=== PATIENT | male | born 1975 | race Caucasian/White ===

== ENCOUNTER 2023-07-22 14:53 | Observation (INO) | payer OTHER, MEDICAID, SELFPAY ==
[2023-07-22] VITALS (11 sets, daily range): BP systolic 107–136; BP diastolic 83–98; PULSE 63–131; RESP 16–34; TEMP 36.4–36.9; O2SAT 96–98; BMI 19.2
--- NOTE | 2023-07-22 15:06 | DI.RAD.S_ITS ---
PROCEDURE: XR CHEST 1V INDICATIONS: Root from TECHNIQUE: One view of the chest was acquired. COMPARISON: None. FINDINGS: Surgical changes and devices: None. Lungs and pleura: On this semiupright portable chest examination, no large pneumothorax is seen. There are likely small bilateral pleural effusions. No focal infiltrates are seen. Mild generalized interstitial prominence can be seen. Mediastinum: Mediastinal contours appear normal. Heart size is prominently enlarged. Bones and chest wall: No suspicious bony lesions. Mild dextroconvex scoliotic curvature is seen. Overlying soft tissues appear unremarkable. IMPRESSION: Prominent cardiomegaly, with mild interstitial prominence, with small bilateral pleural effusions. CHF is suspected. Please consider follow-up echocardiogram. Dictated by: Harish Cee M.D. on 07/22/2023 at 15:20 Approved by: Harish Cee M.D. on 07/22/2023 at 15:22
[2023-07-22 15:37] LABS: Add Manual Diff / Slide Review NO; Basophils Absolute Auto 100 /uL (0-100); Basophils Percent Auto 1.4 % (0-2); Eosinophils Absolute Auto 0 /uL (0-450); Eosinophils Percent Auto 0.4 % (2-4); Lymphocytes Absolute Auto 2000 /uL (1100-4500); Lymphocytes Percent Auto 24.2 % (25-40); Mean Corpuscular HGB Conc 34.2 % (30-36); Mean Corpuscular Hemoglobin 34.9 PG (26-34); Monocytes Absolute Auto 800 /uL (0-900); Monocytes Percent Auto 9.5 % (3-14); Neutrophils Absolute Auto 5300 /uL (1500-7000); Neutrophils Percent Auto 64.5 % (50-75); Platelet Count 187 X10^3/uL (150-400); Red Blood Cell Count 4.02 X10^6/uL (4.5-5.9); Red Cell Distribution Width 14.2 % (11.6-14.8); White Blood Cell Count 8.2 X10^3/uL (4.5-11.0)
[2023-07-22 15:43] LABS: INR 1.8 (0.9-1.3); Prothrombin Time 20.6 SECONDS (9.4-12.5)
[2023-07-22 15:46] LABS: PTT Partial Thromboplastin Tim 29 SECONDS (25.1-36.5)
[2023-07-22 15:48] LABS: Alanine Aminotransferase 29 IU/L (<50); Albumin 4.8 g/dL (3.5-5.0); Albumin Globulin Ratio 1.4 (1.0-2.8); Alkaline Phosphatase 86 U/L (38-126); Aspartate Aminotransferase 42 IU/L (17-59); BUN Creatinine Ratio 28.8 (6-22); Bilirubin Total 4.4 mg/dL (0.2-1.3); Blood Urea Nitrogen 23 mg/dL (9-20); Calcium 10.2 mg/dL (8.4-10.2); Carbon Dioxide 21 mmol/L (22-32); Chloride 104 mmol/L (98-107); Creatine Kinase 83 U/L (55-170); Estimated Glomerular Filt Rate > 60 mL/min (>60); Globulin 3.4 g/dL (1.7-4.1); Glucose 109 mg/dL (70-100); HEMOLYSIS 15 (0-50); Lipase 103 U/L (23-300); Potassium 4.2 mmol/L (3.4-5.1); Sodium 136 mmol/L (137-145); Total Protein 8.2 g/dL (6.3-8.2)
--- NOTE | 2023-07-22 15:54 | PC.NURSE ---
Pt states SOB lasting over a year which is worse with exhertion and laying flat. Patient at rest denies SOB and denies chest pain. Pt had an echo but states no cardiac history and not on daily medication except for zyrtec. Pt started taking zyrtec because he thought it was allergies causing SOB.
[2023-07-22 15:59] LABS: Troponin I < 0.012 ng/mL (0.01-0.034)
[2023-07-22 16:13] LABS: NT-proBNP (BNP-Adult 18+) 30400 pg/mL (<125)
--- NOTE | 2023-07-22 16:26 | ED.SOB ---
HPI - SOB/Dyspnea General Chief Complaint: Shortness of Breath/Dyspnea Stated Complaint: SOB Dyspnea, Time Seen by Provider: 07/22/23 15:06 Source: patient Mode of arrival: Ambulatory History of Present Illness HPI Narrative: This is a 48 old male with history of chronic alcohol abuse quit a month and a half, chronic tobacco use quit about 4 months ago. Patient states he has had chronic shortness of breath that has been worsening with increasing dyspnea with exertion. He is noted increasing orthopnea and has been able to get sleep this week. He is had swelling in his lower extremities that is actually improved somewhat. He states no chest pain or pressure. No syncope. He is had some mild nausea but no vomiting. He states last week he had a viral illness with some diarrhea but no black or bloody stools. He states morning he had a nosebleed which is atypical. Patient states no dysuria, urgency or frequency no abdominal back or flank pain. He states currently he is taking Zyrtec as he thought it upper respiratory infection. No prior surgeries. He notes he had an echo in the and was told he had a floppy valve but has not had any other cardiac workup since then. Denies any allergies to drugs. Quit tobacco 4 or 5 months ago. States he was drinking 8+ alcoholic drinks daily 1-1/2-2 months ago. Has not had any alcohol since then. Denies any IV or recreational drugs, no THC. He splits his time between here in [place] and [place]. Patient states no primary care physician currently. Related Data Home Medications Medication Instructions Recorded Confirmed No Known Home Medications 07/23/23 07/23/23 Allergies Allergy/AdvReac Type Severity Reaction Status Date / Time No Known Drug Allergies Allergy Verified 07/22/23 16:44 Review of Systems Review of Systems ROS Unobtainable: All systems reviewed & are unremarkable except as noted in HPI and below Patient History Social History household members: other Smoking Status: Former smoker alcohol intake: former Smoking Status: Former smoker Substance Use Type: does not use Exam Narrative Exam Narrative: GENERAL: Alert and oriented x three, thin male in mild distress. HEENT: Head normocephalic, atraumatic, EOMI, no scleral icterus, pupils reactive, face symmetric, moist mucous membranes NECK: Supple, full range of motion CARDIOVASCULAR: Irregular and tachycardic rate and rhythm without murmurs, rubs or gallops. Positive for JVD. Edema bilateral lower extremities. RESPIRATORY: Breath sounds equal bilaterally, no wheezes, rales or rhonchi. Patient has mild tachypnea, no accessory muscle use. ABDOMEN: Soft, nontender. Normoactive bowel sounds all 4 quadrants. No guarding or rebound, rigidity, no mass, positive hepatomegaly. : No CVA tenderness EXTREMITIES: Normal range of motion, no clubbing. Neurovascularly intact NEUROLOGICAL: Cranial nerves II through XII grossly intact. Moving all extremities SKIN: Warm, dry, no petechiae, no rashes or lesions. Initial Vital Signs Initial Vital Signs: Vital Signs Temperature 98.4 F 07/22/23 14:58 Pulse Rate 63 07/22/23 14:58 Respiratory Rate 16 07/22/23 14:58 Blood Pressure 130/84 07/22/23 14:58 Pulse Oximetry 97 07/22/23 14:58 Oxygen Delivery Method Room Air 07/22/23 14:58 Course Orders Ordered: Acetaminophen (Acetaminophen 325 Mg Tablet) 650 mg PO Q6H PRN PRN Reason: Fever/Mild Pain (1-3) Aspirin (Aspirin Ec 81 Mg Tablet) 81 mg PO DAILY [facility] Furosemide (Furosemide 40 Mg/4 Ml Vial) 40 mg IV 1600,0800 [facility] Last Admin: 07/23/23 16:52 Dose: 40 mg Documented By: MM Losartan Potassium (Losartan 25 Mg Tablet) 12.5 mg PO DAILY [facility] Last Admin: 07/23/23 13:39 Dose: 12.5 mg Documented By: MM Metoprolol Succinate (Metoprolol Er 25 Mg Tablet) 12.5 mg PO DAILY [facility] Last Admin: 07/23/23 13:39 Dose: 12.5 mg Documented By: MM Potassium Chloride (Potassium Chloride 20 Meq Tab) 40 meq PO Q6H [facility] Stop: 07/24/23 13:46 Spironolactone (Spironolactone 25 Mg Tablet) 12.5 mg PO DAILY [facility] Last Admin: 07/23/23 13:38 Dose: 12.5 mg Documented By: MM Discontinued Medications Furosemide (Furosemide 40 Mg/4 Ml Vial) 40 mg IV NOW ONE Stop: 07/22/23 16:37 Last Admin: 07/22/23 16:44 Dose: 40 mg Documented By: SPF Furosemide (Furosemide 40 Mg/4 Ml Vial) 40 mg IV Q12HR JACOB Last Admin: 07/23/23 08:04 Dose: 40 mg Documented By: MM Vital Signs Vital signs: Vital Signs - 8 hr 07/22/23 14:58 07/22/23 15:29 07/22/23 15:30 Temperature 98.4 F Pulse Rate 63 115 H 117 H Respiratory Rate 16 24 24 Blood Pressure 130/84 Pulse Oximetry 97 97 97 Oxygen Delivery Method Room Air 07/22/23 15:31 07/22/23 15:31 07/22/23 16:00 Temperature Pulse Rate 131 H 103 H Respiratory Rate 21 Blood Pressure 124/89 Pulse Oximetry 97 96 Oxygen Delivery Method Room Air 07/22/23 16:00 07/22/23 16:30 07/22/23 16:30 Temperature Pulse Rate 117 H Respiratory Rate 26 H Blood Pressure 135/96 H 136/98 H Pulse Oximetry 97 Oxygen Delivery Method Room Air MDM - SOB/Dyspnea Lab Data 07/24/23 05:30 07/24/23 05:30 Labs: Lab Results 07/22/23 Range/Units 15:27 WBC 8.2 (4.5-11.0) X10^3/uL RBC 4.02 L (4.5-5.9) X10^6/uL Hgb 14.0 (13.5-17.5) g/dL Hct 41.0 (41-53) % MCV 102.0 H (80-100) fL MCH 34.9 H (26-34) PG MCHC 34.2 (30-36) % RDW 14.2 (11.6-14.8) % Plt Count 187 (150-400) X10^3/uL Neut % (Auto) 64.5 (50-75) % Lymph % (Auto) 24.2 L (25-40) % [place] % (Auto) 9.5 (3-14) % Eos % (Auto) 0.4 L (2-4) % Baso % (Auto) 1.4 (0-2) % Neut # (Auto) 5300 (7226-3124) /uL Lymph # (Auto) 2000 (2416-7936) /uL [place] # (Auto) 800 (0-900) /uL Eos # (Auto) 0 (0-450) /uL Baso # (Auto) 100 (0-100) /uL PT 20.6 H (9.4-12.5) SECONDS INR 1.8 H (0.9-1.3) APTT 29 (25.1-36.5) SECONDS Sodium 136 L (137-145) mmol/L Potassium 4.2 (3.4-5.1) mmol/L Chloride 104 (98-107) mmol/L Carbon Dioxide 21 L (22-32) mmol/L BUN 23 H (9-20) mg/dL Creatinine 0.80 (0.66-1.25) mg/dL Estimated GFR > 60 (>60) mL/min BUN/Creatinine Ratio 28.8 H (6-22) Glucose 109 H (70-100) mg/dL Calcium 10.2 (8.4-10.2) mg/dL Total Bilirubin 4.4 H (0.2-1.3) mg/dL AST 42 (17-59) IU/L ALT 29 (<50) IU/L Alkaline Phosphatase 86 (38-126) U/L Total Creatine Kinase 83 (55-170) U/L Troponin I < 0.012 (0.01-0.034) ng/mL NT-Pro-B Natriuret Pep 39723 H (<125) pg/mL Total Protein 8.2 (6.3-8.2) g/dL Albumin 4.8 (3.5-5.0) g/dL Globulin 3.4 (1.7-4.1) g/dL Albumin/Globulin Ratio 1.4 (1.0-2.8) Lipase 103 (23-300) U/L Imaging Data Chest x-ray: Radiologist's Impression: [address] [address] XRay Report Signed Patient: Herman Huggins MR#: [id number] : 1975 Acct:[id number] Age/Sex: 48 / M Date of Service: 07/22/23 Loc: ED Accession Number: [id number] Procedure: XR chest 1V Ordering Provider: Mary Lara D.O. PROCEDURE: XR CHEST 1V INDICATIONS: Root from TECHNIQUE: One view of the chest was acquired. COMPARISON: None. FINDINGS: Surgical changes and devices: None. Lungs and pleura: On this semiupright portable chest examination, no large pneumothorax is seen. There are likely small bilateral pleural effusions. No focal infiltrates are seen. Mild generalized interstitial prominence can be seen. Mediastinum: Mediastinal contours appear normal. Heart size is prominently enlarged. Bones and chest wall: No suspicious bony lesions. Mild dextroconvex scoliotic curvature is seen. Overlying soft tissues appear unremarkable. IMPRESSION: Prominent cardiomegaly, with mild interstitial prominence, with small bilateral pleural effusions. CHF is suspected. Please consider follow-up echocardiogram. Dictated by: Harish Cee M.D. on 07/22/2023 at 15:20 Approved by: Harish Cee M.D. on 07/22/2023 at 15:22 CT scan - chest: Radiologist's Impression: [place] [address] CT Scan Report Signed Patient: Herman Huggins MR#: [id number] : 1975 Acct:[id number] Age/Sex: 48 / M Date of Service: 07/22/23 Loc: ED Accession Number: [id number] Procedure: CT angio chest PE protocol Ordering Provider: Mary Lara D.O. PROCEDURE: CT ANGIO CHEST PE PROTOCOL INDICATIONS: cardiomegaly, heart failure, ? effusion vs pe TECHNIQUE: After the administration of intravenous contrast, 2 mm thick sections acquired from the pulmonary apices to the posterior costophrenic angles. 3-dimensional maximum intensity projection (MIP) coronal and sagittal reformats were then acquired through the thorax. For radiation dose reduction, the following was used: automated exposure control, adjustment of mA and/or kV according to patient size. COMPARISON: [facility], CR, XR CHEST 1V, 07/22/2023, 15:37. FINDINGS: Image quality: Diagnostic. Pulmonary arteries: Pulmonary arteries are normal in size, and demonstrate no intraluminal filling defects to suggest central pulmonary embolism. Note is made poor opacification of the distal pulmonary arteries within both the right lower lobe and the left lower lobe, which is felt most likely be related to artifact. Lungs and pleura: Centrilobular emphysematous changes are seen. These are more prominent at the lung apices than at the lung bases. There is a small right-sided pleural. No pneumothorax is seen. Mediastinum: The heart size is grossly enlarged, with particular enlargement the left atrium and left ventricle. A small pericardial effusion can be seen. No mediastinal or hilar adenopathy. Thoracic aorta is normal in caliber and enhancement. Esophagus is normal in caliber, without hiatal hernia. Bones and chest wall: No suspicious bony lesions. Ribs and thoracic spine appear intact throughout. Age-appropriate bony degenerative changes are seen. Accentuated thoracic kyphosis is seen. No axillary or supraclavicular adenopathy. No thyroid nodules which require sonographic follow up, per consensus guidelines. Abdomen: Reflux of contrast can be seen into the inferior vena cava and the hepatic veins. Visualized upper abdominal solid organs appear normal in the early arterial phase of enhancement. IMPRESSION: Negative for pulmonary embolism. Prominent cardiomegaly, particularly involving the left atrium and left ventricle. There is reflux of contrast seen into the inferior vena cava and hepatic veins, which is commonly observed in patients with congestive heart failure. - Please consider a follow-up echocardiogram and cardiology consultation. A small pericardial effusion is seen. There is a small right-sided pleural effusion. Dictated by: Harish Cee M.D. on 07/22/2023 at 16:27 Approved by: Harish Cee M.D. on 07/22/2023 at 16:31 ECG Data Attestation: I personally reviewed and interpreted this ECG as follows: Interpretation: Atrial rhythm irregular, atrial fibrillation with rate of 103 QRS of 130 QTC 482. LVH,. No priors for comparison. MDM Narrative Medical decision making narrative: 48-year-old male with history of chronic tobacco and alcohol abuse who reports he has been substance free for the past 1-2 months. Patient presents with increasing symptoms consistent with heart failure, he initially had a heart rate in the 60s but jumped up to the 100 range and has been bouncing around between 120s and 80s. Patient appears to be an atrial rhythm likely atrial fibrillation. CBC shows normal white count, hemoglobin platelets. He does have a macrocytosis consistent with alcohol history. INR is elevated with a bilirubin of 4.4 and suspect some longstanding cirrhosis other LFTs and lipase are negative. Renal function and electrolytes are appropriate at 4.2 potassium sodium 136 and a creatinine of 0.8 with a BUN of 23 and a glucose of 109. [place] [address]. Chest x-ray shows significant cardiomegaly, pleural effusions and interstitial prominence. Discussed with patient source could be cardiomyopathy from alcohol abuse, possible valvular issues as patient was told he had a floppy valve in the 90s on ultrasound, versus right-sided heart failure other source. Spoke with Dr. Sullivan from Cardiology, agrees with plan for diuresis, ECHO, would recommend placing patient on oral metoprolol succinate 25 mg p.o. b.i.d. and if blood pressure would tolerate an Arb or TAPAN inhibitor. Spoke with Dr. Child, hospitalist asked for CT chest PE protocol to rule out pulmonary emboli versus large pericardial effusion as this would change potential disposition for inpatient versus transfer. Asked that we hold off on beta christine but go ahead and start Lasix. CT angio is negative for pulmonary emboli, prominent cardiomegaly particularly left atrium and ventricle, reflux of contrast in the inferior vena cava and hepatic veins commonly observed in patients with congestive heart failure. Small pericardial effusion, small right-sided pleural effusion noted. Dr. Child accepts for admission, saw patient here in the department. Discharge Plan Departure Patient Disposition: Admitted as Observation Clinical Impression: Congestive heart failure (CHF), Atrial fibrillation with rapid ventricular response, Cardiomegaly Admit Date/Time: 07/22/23 17:47 Admit Provider: Hero Child
--- NOTE | 2023-07-22 16:43 | DI.CT.S_ITS ---
PROCEDURE: CT ANGIO CHEST PE PROTOCOL INDICATIONS: cardiomegaly, heart failure, ? effusion vs pe TECHNIQUE: After the administration of intravenous contrast, 2 mm thick sections acquired from the pulmonary apices to the posterior costophrenic angles. 3-dimensional maximum intensity projection (MIP) coronal and sagittal reformats were then acquired through the thorax. For radiation dose reduction, the following was used: automated exposure control, adjustment of mA and/or kV according to patient size. COMPARISON: [facility], CR, XR CHEST 1V, 07/22/2023, 15:37. FINDINGS: Image quality: Diagnostic. Pulmonary arteries: Pulmonary arteries are normal in size, and demonstrate no intraluminal filling defects to suggest central pulmonary embolism. Note is made poor opacification of the distal pulmonary arteries within both the right lower lobe and the left lower lobe, which is felt most likely be related to artifact. Lungs and pleura: Centrilobular emphysematous changes are seen. These are more prominent at the lung apices than at the lung bases. There is a small right-sided pleural. No pneumothorax is seen. Mediastinum: The heart size is grossly enlarged, with particular enlargement the left atrium and left ventricle. A small pericardial effusion can be seen. No mediastinal or hilar adenopathy. Thoracic aorta is normal in caliber and enhancement. Esophagus is normal in caliber, without hiatal hernia. Bones and chest wall: No suspicious bony lesions. Ribs and thoracic spine appear intact throughout. Age-appropriate bony degenerative changes are seen. Accentuated thoracic kyphosis is seen. No axillary or supraclavicular adenopathy. No thyroid nodules which require sonographic follow up, per consensus guidelines. Abdomen: Reflux of contrast can be seen into the inferior vena cava and the hepatic veins. Visualized upper abdominal solid organs appear normal in the early arterial phase of enhancement. IMPRESSION: Negative for pulmonary embolism. Prominent cardiomegaly, particularly involving the left atrium and left ventricle. There is reflux of contrast seen into the inferior vena cava and hepatic veins, which is commonly observed in patients with congestive heart failure. - Please consider a follow-up echocardiogram and cardiology consultation. A small pericardial effusion is seen. There is a small right-sided pleural effusion. Dictated by: Harish Cee M.D. on 07/22/2023 at 16:27 Approved by: Harish Cee M.D. on 07/22/2023 at 16:31
[2023-07-22] MEDS: FUROSEMIDE 40 MG/4 ML VIAL IV (16:44)
--- NOTE | 2023-07-22 18:17 | P.HP_ITS ---
History of Present Illness History of Present Illness Date Patient Seen: 07/22/23 Time Patient Seen: 18:00 Chief complaint: SOB Dyspnea, Narrative: Mr. Huggins is a 48M with no significant known PMH aside from a long history of alcohol use and tobacco use. He has quit a few months ago. He has no known history of heart disease, family history of heart disease, no known history of hypertension. He has noted a year of intermittent shortness of breath, intermittent palpitations. He has had no chest pain. He states that in the 90s he had an ECHO with a floppy valve. He has had difficulty lying flat when trying to sleep. He does not follow up with doctors. In the ED workup was done, vitals were notable for afebrile, heart rate 100s, blood pressure 130s/80s, sats 97% on room air. Labs reviewed by me and notable for and notable for WBC 8.2, hgb 14, plts 187. Na 136, co2 21, creatinine 0.80. Bili 4.4. Trop negative. BNP 10198. EKG showed LVH and atrial fibrillation. Chest xray showed cardiomegaly, and small bilateral pleural effusions. CTA chest showed no PE, small pleural effusions. He was ordered for IV lasix and admitted for further treatment. [facility] Social History Smoking Status: Former smoker Meds Home Medications and Allergies Home Medications Medication Instructions Recorded Confirmed Type No Known Home Medications 07/22/23 07/22/23 History Allergies Allergy/AdvReac Type Severity Reaction Status Date / Time No Known Drug Allergies Allergy Verified 07/22/23 16:44 Review of Systems Review of Systems Narrative: 14 systems reviewed and negative aside from what is noted in HPI Exam Vital Signs (past 8 hours): - 07/22/23 14:58 07/22/23 15:29 07/22/23 15:30 Temperature 98.4 F Pulse Rate 63 115 H 117 H Respiratory Rate 16 24 24 Blood Pressure 130/84 Pulse Oximetry 97 97 97 Oxygen Delivery Method Room Air 07/22/23 15:31 07/22/23 15:31 07/22/23 16:00 Temperature Pulse Rate 131 H 103 H Respiratory Rate 21 Blood Pressure 124/89 Pulse Oximetry 97 96 Oxygen Delivery Method Room Air 07/22/23 16:00 07/22/23 16:30 07/22/23 16:30 Temperature Pulse Rate 117 H Respiratory Rate 26 H Blood Pressure 135/96 H 136/98 H Pulse Oximetry 97 Oxygen Delivery Method Room Air 07/22/23 17:36 07/22/23 17:41 07/22/23 17:41 Temperature Pulse Rate 114 H 102 H Respiratory Rate 25 H 24 Blood Pressure 117/90 Pulse Oximetry 98 97 Oxygen Delivery Method Room Air 07/22/23 18:00 07/22/23 18:01 07/22/23 18:01 Temperature Pulse Rate 118 H 109 H Respiratory Rate 30 H 34 H Blood Pressure 115/83 Pulse Oximetry 97 97 Oxygen Delivery Method Room Air Oxygen Delivery Method Room Air Narrative Exam Narrative: GEN: no acute distress CV: irregular, tachycardic PULM: crackles bilaterally ABD: soft, nontender, nondistended, no organomegaly EXT: trace pitting edmea NEURO: awake, alert, oriented, no focal deficits Objective Labs 07/22/23 15:27 07/22/23 15:27 Labs: Laboratory Results - last 24 hr 07/22/23 15:27 WBC 8.2 RBC 4.02 L Hgb 14.0 Hct 41.0 MCV 102.0 H MCH 34.9 H MCHC 34.2 RDW 14.2 Plt Count 187 Neut % (Auto) 64.5 Lymph % (Auto) 24.2 L [place] % (Auto) 9.5 Eos % (Auto) 0.4 L Baso % (Auto) 1.4 Neut # (Auto) 5300 Lymph # (Auto) 2000 [place] # (Auto) 800 Eos # (Auto) 0 Baso # (Auto) 100 PT 20.6 H INR 1.8 H APTT 29 Sodium 136 L Potassium 4.2 Chloride 104 Carbon Dioxide 21 L BUN 23 H Creatinine 0.80 Estimated GFR > 60 BUN/Creatinine Ratio 28.8 H Glucose 109 H Calcium 10.2 Total Bilirubin 4.4 H AST 42 ALT 29 Alkaline Phosphatase 86 Total Creatine Kinase 83 Troponin I < 0.012 NT-Pro-B Natriuret Pep 66221 H Total Protein 8.2 Albumin 4.8 Globulin 3.4 Albumin/Globulin Ratio 1.4 Lipase 103 Assessment & Plan Assessment & Plan narrative: 1. Acute CHF exacerbation -I suspect the etiology is related to alcoholic cardiomyopathy -CTA showed no PE -ECHO ordered -lasix ordered for diuresis -suspect will have systolic dysfunction and will need beta-christine and TAPAN/ARB on discharge, but follow up ECHO 2. Atrial fibrillation, rapid ventricular rate -CHADSVASC2 calculation on admission on 1 -hold beta-christine for now given acute CHF presentation -consider anticoagulation on discharge I have discussed plan and obtained history from patient. I have discussed plan of care with ED physician and bedside nurse. I have reviewed labs, imaging. CODE: Full Proxy: brother [facility] - Meds 'Current medications' to include all prescriptions, [id number] products, herbals, cannabis/cannabidiol products, and vitamin/mineral/dietary (nutritional) supplements. I have utilized all available resources to obtain, update, or review the patient?s current medications. [If Yes, STOP here]: Yes
--- NOTE | 2023-07-22 18:26 | DI.ECHO.S_ITS ---
[facility]---------+ [facility] +---------+ : : [address] : : : : [id number] : : : : Phone: [phone]+ Echocardiogram Report + + :Name: GEENA SPENCE Study Date: 07/23/2023 Height: 69 in : :[facility] ReadingLocation: Weight: 130 lb : : Gender: Male BSA: 1.7 m2 : :: 1975 Age: 48 yrs BP: 107/84 mmHg: :Reason For Study: CONGESTIVE HEART FAILURE : :Ordering Physician: LISBETH, : :CAPRI Performed By: Janet Carter : :Referring: CAPRI BOB : + + Interpretation Summary The left ventricle is markedly dilated. Left ventricular ejection fraction is estimated to be 25%. There is moderate to severe global hypokinesis of the left ventricle. The right ventricle is mildly dilated. Right ventricular systolic function is mild to moderately reduced. Severe biatrial enlargement. Mild aortic regurgitation. There is prolapse of the posterior mitral valve leaflet(s). Severe mitral regurgitation, eccentrically directed. Mild tricuspid regurgitation. The right ventricular systolic pressure is estimated to be at least 68 mmHg based on an estimated right atrial pressure of 15 mm Hg. Severe pulmonary hypertension. Procedure: A two-dimensional transthoracic echocardiogram with color flow and Doppler was performed. The study quality was technically good. There is no prior echocardiogram noted for this patient. The patient was in sinus rhythm with heart rates between 86-108 bpm during the exam. Left Ventricle: The left ventricle is markedly dilated. There is mild concentric left ventricular hypertrophy. Left ventricular ejection fraction is estimated to be 25%. There is moderate to severe global hypokinesis of the left ventricle. Diastolic function could not be accurately assessed due to confounding valvular disease. Right Ventricle: The right ventricle is mildly dilated. Right ventricular systolic function is mild to moderately reduced. Atria: There is severe biatrial enlargement. There is no Doppler evidence for an interatrial shunt. Mitral Valve: The mitral valve leaflets appear mildly thickened, but open well. There is prolapse of the posterior mitral valve leaflet(s). There is severe mitral regurgitation. The mitral regurgitant jet is eccentrically directed. Aortic Valve: The aortic valve opens well. The aortic valve is trileaflet. There is no aortic valve stenosis. There is mild aortic regurgitation. Tricuspid Valve: The tricuspid valve leaflets are thin and pliable. There is mild tricuspid regurgitation. The right ventricular systolic pressure is estimated to be at least 68 mmHg based on an estimated right atrial pressure of 15 mm Hg. There is severe pulmonary hypertension. Pulmonic Valve: The pulmonic valve leaflets are thin and pliable; valve motion is normal. There is mild pulmonic regurgitation. Great Vessels: The aortic root is borderline dilated. The dimensions of the ascending aorta are normal. The IVC is dilated (diameter is greater than 2.1 cm) and it collapses less than 50% with a sniff. This suggests a high right atrial pressure of 15 mm Hg. Pericardium/ Pleura There is a trivial pericardial effusion noted. There is no pleural effusion. MMode/2D Measurements & Calculations LVIDd: 8.7 cm LVOT diam: 2.9 cm LVIDs: 7.7 cm Ao root diam: 4.4 cm FS: 12.3 % asc Aorta Diam: 3.2 cm EPSS: 1.4 cm Ao Arch Diam (Prox Trans): 2.9 cm IVSd: 1.2 cm LVPWd: 1.1 cm LV driver. diameter/BSA (cm/m^2): 5.1 LV sys. diameter/BSA (cm/m^2): 4.5 LA dimension: 8.0 cm RA long axis: 5.5 cm LA A2 area: 82.1 cm2 RA area: 23.3 cm2 LA A4 area: 56.9 cm2 RA vol: 84.1 ml LA length (vol): 9.2 cm RA : 48.9 ml/m2 LA vol: 433.2 ml IVC diam: 2.6 cm LA vol index: 251.9 ml/m2 RVD1 (basal): 4.9 cm RVD2 (mid): 3.4 cm TAPSE: 1.3 cm Doppler Measurements & Calculations Ao V2 max: 95.9 cm/sec LVOT Max Hector: 78.8 cm/sec Ao V2 mean: 70.5 cm/sec LV V1 max P.5 mmHg Ao max P.7 mmHg LV V1 VTI: 10.7 cm Ao mean P.1 mmHg DOMINIC(I,D): 5.3 cm2 Ao V2 VTI: 13.1 cm DOMINIC(V,D): 5.3 cm2 sev ratio: 0.82 DOMINIC indexed to BSA (cm^2/m^2): 3.1 AI P1/2t: 2304 msec AI dec slope: 47.7 cm/sec2 Med Peak E' Hector: 7.6 cm/sec TR max hector: 365.1 cm/sec Lat Peak E' Hector: 14.4 cm/sec TR max P.3 mmHg MR ERO: 2.0 cm2 PA V2 max: 184.1 cm/sec PA V2 mean: 137.0 cm/sec PA mean P.3 mmHg PA pr(Accel): 57.2 mmHg MR PISA: 21.2 cm2 SV(LVOT): 68.7 ml MR flow rate: 966.8 cm3/sec MR PISA radius: 1.8 cm Electronically signed by: Raul De Leon on Reading Physician:07/23/2023 09:05 AM
[2023-07-23] MEDS: FUROSEMIDE 40 MG/4 ML VIAL IV ×2 (08:04→16:52)
[2023-07-23 08:29] LABS: BUN Creatinine Ratio 27.5 (6-22); Blood Urea Nitrogen 25 mg/dL (9-20); Calcium 9.6 mg/dL (8.4-10.2); Carbon Dioxide 26 mmol/L (22-32); Chloride 101 mmol/L (98-107); Estimated Glomerular Filt Rate > 60 mL/min (>60); Glucose 100 mg/dL (70-100); HEMOLYSIS < 15 (0-50); Magnesium 1.9 mg/dL (1.6-2.3); Potassium 4.3 mmol/L (3.4-5.1); Sodium 135 mmol/L (137-145)
[2023-07-23 08:45] VITALS: BP 117/75; PULSE 74; RESP 18; TEMP 36.3; O2SAT 96
[2023-07-23 08:58] LABS: Add Manual Diff / Slide Review NO; Basophils Absolute Auto 100 /uL (0-100); Basophils Percent Auto 1.6 % (0-2); Eosinophils Absolute Auto 0 /uL (0-450); Eosinophils Percent Auto 0.7 % (2-4); Hematocrit 40.2 % (41-53); Hemoglobin 13.5 g/dL (13.5-17.5); Lymphocytes Absolute Auto 1400 /uL (1100-4500); Lymphocytes Percent Auto 21.9 % (25-40); Mean Corpuscular HGB Conc 33.7 % (30-36); Mean Corpuscular Hemoglobin 33.9 PG (26-34); Mean Corpuscular Volume 100.6 fL (80-100); Monocytes Absolute Auto 400 /uL (0-900); Monocytes Percent Auto 5.7 % (3-14); Neutrophils Absolute Auto 4700 /uL (1500-7000); Neutrophils Percent Auto 70.1 % (50-75); Platelet Count 171 X10^3/uL (150-400); Red Blood Cell Count 3.99 X10^6/uL (4.5-5.9); Red Cell Distribution Width 13.9 % (11.6-14.8); White Blood Cell Count 6.6 X10^3/uL (4.5-11.0)
[2023-07-23 13:15] VITALS: BP 100/70; PULSE 59; RESP 18; TEMP 36.2; O2SAT 98
[2023-07-23] MEDS: SPIRONOLACTONE 25 MG TABLET 12.5 MG PO (13:38)
[2023-07-23 13:39] VITALS: BP 100/70; PULSE 59
[2023-07-23] MEDS: LOSARTAN 25 MG TABLET 12.5 MG PO (13:39)
[2023-07-23] MEDS: METOPROLOL ER 25 MG TABLET 12.5 MG PO (13:39)
--- NOTE | 2023-07-23 15:04 | CM.DANOTE ---
Initial DCP Assessment Note Pt is a 48 yo male, resident of [place], presents with SOB, Dyspnea while visiting family for the . PMH includes long history of alcohol and Tobacco use. No PCP or medical insurance. patient admitted for management of severe heart failure Met w/patient and his mom Keena, introduced self and role. Patient is currently unemployed, lives w/roommates in [place], patient reports they drink a lot of beer together. Patient is indp., drives. Discussed discharge plan, patient plans to stay with his family in [place]. Mom Keena reports patient's brother is completing the [employer] application for medical insurance, mom will research options to cover any new medications that patient is prescribed. This VISUAL DISPLAY ASSOCIATE encourages patient to take responsibility for these items. Provided Good RX resource and encouraged mom Keena to consider [facility] and [facility] as cost effective pharmacy options (for paying out of pocket for new Rx). Updated Dr Trejo that patient does not have insurance currently. Later learned that patient is a good candidate for LifeVest, Z vest. Missed a call from Paulino Proctor [phone] updating that referral received from Dr Trejo, needs ongoing coordination. ARLEY Chang Discharge Planning/Care Management CM Discharge Assessment Start: 07/23/23 15:02 Freq: Status: Active Protocol: Document 07/23/23 15:02 VARSHA (Rec: 07/23/23 15:04 VARSHA [id number]) Discharge Planning Assessment Assigned Front End Web Designer ARLEY Tam DPOA/Assigned Designee Name colin Posey Contact Information [phone] Advance Directives? No History Provided By Patient,Family Member Prior Living Arrangements House Household Members other Comment Roommates Type of transporation used prior to Drives own vehicle admit Independent with ADL's Yes Is patient alert and oriented? Yes Barriers to Discharge Yes Comment Patient does not have insurance Discharge Plan Home Transportation Arrangement Family Additional Comment Patient would benefit from a Z Vest, LifeVest
[2023-07-23 15:37] VITALS: BP 106/78; PULSE 92
[2023-07-23 16:45] VITALS: BP 110/72; PULSE 49; RESP 18; TEMP 36.3; O2SAT 98
--- NOTE | 2023-07-23 18:16 | P.PN_ITS ---
Subjective Subjective Interval history: Feeling better today. Still with 1+ edema of LE's. Echo showed EF 25%, severely dilated LV and severe MR. Spoke with patient and mother about findings. He is willing to start appropriate meds and see transporter driver. [employer] rep contacted. Exam Vital Signs (past 8 hours): - 07/23/23 13:15 07/23/23 13:39 07/23/23 13:39 Temperature 97.2 F L Pulse Rate 59 L 59 L 59 L Respiratory Rate 18 Blood Pressure 100/70 100/70 100/70 Pulse Oximetry 98 Oxygen Flow Rate 0 07/23/23 15:37 07/23/23 16:45 Temperature 97.4 F L Pulse Rate 92 H 49 L Respiratory Rate 18 Blood Pressure 106/78 110/72 Pulse Oximetry 98 Oxygen Flow Rate 0 Oxygen Delivery Method Room Air Oxygen Flow Rate 0 Narrative Exam Narrative: GEN: no acute distress CV: irregular, tachycardic PULM: crackles bilaterally ABD: soft, nontender, nondistended, no organomegaly EXT: 1+ pitting edema NEURO: awake, alert, oriented, no focal deficits Objective Labs 07/23/23 07:58 07/23/23 07:58 Labs: Laboratory Results - last 24 hr 07/23/23 07:58 WBC 6.6 RBC 3.99 L Hgb 13.5 Hct 40.2 L MCV 100.6 H MCH 33.9 MCHC 33.7 RDW 13.9 Plt Count 171 Neut % (Auto) 70.1 Lymph % (Auto) 21.9 L [place] % (Auto) 5.7 Eos % (Auto) 0.7 L Baso % (Auto) 1.6 Neut # (Auto) 4700 Lymph # (Auto) 1400 [place] # (Auto) 400 Eos # (Auto) 0 Baso # (Auto) 100 Sodium 135 L Potassium 4.3 Chloride 101 Carbon Dioxide 26 BUN 25 H Creatinine 0.91 Estimated GFR > 60 BUN/Creatinine Ratio 27.5 H Glucose 100 Calcium 9.6 Magnesium 1.9 PFSH Social History household members: other Smoking Status: Former smoker alcohol intake: former Assessment & Plan Assessment & Plan narrative: 1. 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 -CTA showed no PE -ECHO with EF 25%, severely dilated LV, severe MR -lasix ordered for diuresis, will continue until Cr starts to uptrend -start losartan, spironolactone and metoprolol as almost euvolemic -outpatient urgent cardiology referral sent, patient lives in [place] but can see cardiology here -counseled strongly about alcohol cessation, patient says he quit 3 weeks ago -contacted [facility] rep who will attempt to get patient this as he meets criteria -urgent outpatient cardiology referral sent to [facility], although doesn't have PCP so unclear if it will work 2. Atrial fibrillation, rapid ventricular rate -CHADSVASC2 calculation on admission on 1 -hold beta-christine for now given acute CHF presentation -start ASA 81mg daily 3. Alcohol dependence -drank up to 6 sixteen ounce beers daily for many years -counseled cessation CODE: Full Proxy: Dennis Huggins, brother Dispo: Home in 1-2 days pending Lifevest and toleration of CHF meds.
[2023-07-23 20:00] VITALS: BP 97/50; PULSE 53; RESP 16; TEMP 36.3; O2SAT 97
[2023-07-24 00:22] VITALS: BP 100/72; PULSE 64; RESP 16; TEMP 36.6; O2SAT 99
--- NOTE | 2023-07-24 00:26 | PC.NURSE ---
Addendum entered by Ofelia Zapata R.N. 07/24/23 03:20: aware of vtach. No new orders at this time. Original Note: Patient resting in bed. Up twice to the bathroom independently. Both times he had a run of Vtach, a 6 run for the first time and 16 run the second. Patient denies any symptoms during either times. Back to bed without any complaints.
[2023-07-24 04:41] VITALS: BP 99/74; PULSE 64; RESP 16; TEMP 36; O2SAT 97
[2023-07-24 06:10] LABS: Add Manual Diff / Slide Review NO; Basophils Absolute Auto 0 /uL (0-100); Basophils Percent Auto 0.4 % (0-2); Eosinophils Absolute Auto 100 /uL (0-450); Eosinophils Percent Auto 1.5 % (2-4); Hematocrit 40.8 % (41-53); Hemoglobin 13.9 g/dL (13.5-17.5); Lymphocytes Absolute Auto 1700 /uL (1100-4500); Lymphocytes Percent Auto 25.5 % (25-40); Mean Corpuscular HGB Conc 34.1 % (30-36); Mean Corpuscular Hemoglobin 34.3 PG (26-34); Mean Corpuscular Volume 100.6 fL (80-100); Monocytes Absolute Auto 600 /uL (0-900); Monocytes Percent Auto 8.8 % (3-14); Neutrophils Absolute Auto 4300 /uL (1500-7000); Neutrophils Percent Auto 63.8 % (50-75); Platelet Count 181 X10^3/uL (150-400); Red Blood Cell Count 4.06 X10^6/uL (4.5-5.9); White Blood Cell Count 6.7 X10^3/uL (4.5-11.0)
[2023-07-24 06:16] LABS: BUN Creatinine Ratio 31.5 (6-22); Blood Urea Nitrogen 28 mg/dL (9-20); Calcium 9.5 mg/dL (8.4-10.2); Carbon Dioxide 26 mmol/L (22-32); Chloride 100 mmol/L (98-107); Estimated Glomerular Filt Rate > 60 mL/min (>60); Glucose 94 mg/dL (70-100); HEMOLYSIS < 15 (0-50); Potassium 3.3 mmol/L (3.4-5.1); Sodium 133 mmol/L (137-145)
[2023-07-24 08:00] VITALS: BP 123/88; PULSE 80; RESP 16; TEMP 36.6; O2SAT 97
--- NOTE | 2023-07-24 09:37 | PM.DS.1 ---
History of Present Illness History of Present Illness Date Patient Seen: 07/24/23 Time Patient Seen: 09:37 Chief complaint: SOB Dyspnea, Narrative: Per admitting provider, Mr. Huggins is a 48M with no significant known PMH aside from a long history of alcohol use and tobacco use. He has quit a few months ago. He has no known history of heart disease, family history of heart disease, no known history of hypertension. He has noted a year of intermittent shortness of breath, intermittent palpitations. He has had no chest pain. He states that in the 90s he had an ECHO with a floppy valve. He has had difficulty lying flat when trying to sleep. He does not follow up with doctors. In the ED workup was done, vitals were notable for afebrile, heart rate 100s, blood pressure 130s/80s, sats 97% on room air. Labs reviewed by me and notable for and notable for WBC 8.2, hgb 14, plts 187. Na 136, co2 21, creatinine 0.80. Bili 4.4. Trop negative. BNP 04971. EKG showed LVH and atrial fibrillation. Chest xray showed cardiomegaly, and small bilateral pleural effusions. CTA chest showed no PE, small pleural effusions. He was ordered for IV lasix and admitted for further treatment. Discharge Providers Provider Date of admission: 07/22/23 17:47 Discharge Date: 07/24/23 Discharge provider: Juan Bustillos DO Summary Hospital Course Discharge Diagnosis: 1. Acute systolic heart failure, new dx of dilated Cardiomyopathy. 2. Atrial fibrillation, rapid ventricular rate 3. Alcohol dependence 4. Hypokalemia, secondary to diuretic Hospital Course: This is a 48 year old male who had no known PMH but had not regular seen providers, who was admitted with a new diagnosis of systolic heart failure, likely due to dilated cardiomyopathy due to alcohol use. Echocardiogram showed EF of 25%. He was diuresed with furosemide IV and transitioned to oral furosemide at discharge, he appeared euvolemic at discharge. After diuresis he was started on GDMT with losartan and metoprolol. He was also started on aldactone therapy. [facility], and will continue to evaluate patient for [facility] as an outpatient given current lack of insurance. Patient encouraged to establish with PCP as soon as possible, and referral was made to cardiology on 07/23. With his afib with RVR on admission, his artem's vasc is elevated but given lack of insurance and that this quickly resolved on admission after diuresis apixaban was not continued and aspirin daily was recommended instead, though if patient is able to obtain insurance further discussion about warfarin or DOAC is recommended for stroke prevention. Time Spent with Patient Time spent: Greater than 30 minutes Exam Vital Signs (past 8 hours): - 07/24/23 04:41 07/24/23 08:00 Temperature 96.8 F L 97.8 F Pulse Rate 64 80 Respiratory Rate 16 16 Blood Pressure 99/74 123/88 Pulse Oximetry 97 97 Oxygen Flow Rate 0 0 Oxygen Delivery Method Room Air Oxygen Flow Rate 0 Narrative Exam Narrative: GEN: no acute distress CV: irregular, tachycardic PULM: crackles bilaterally ABD: soft, nontender, nondistended, no organomegaly EXT: no edema NEURO: awake, alert, oriented, no focal deficits Objective Labs 07/24/23 05:30 07/24/23 05:30 Labs: Laboratory Results - last 24 hr 07/24/23 05:30 WBC 6.7 RBC 4.06 L Hgb 13.9 Hct 40.8 L MCV 100.6 H MCH 34.3 H MCHC 34.1 RDW 14.0 Plt Count 181 Neut % (Auto) 63.8 Lymph % (Auto) 25.5 [place] % (Auto) 8.8 Eos % (Auto) 1.5 L Baso % (Auto) 0.4 Neut # (Auto) 4300 Lymph # (Auto) 1700 [place] # (Auto) 600 Eos # (Auto) 100 Baso # (Auto) 0 Sodium 133 L Potassium 3.3 L Chloride 100 Carbon Dioxide 26 BUN 28 H Creatinine 0.89 Estimated GFR > 60 BUN/Creatinine Ratio 31.5 H Glucose 94 Calcium 9.5 PFSH Social History household members: other Smoking Status: Former smoker alcohol intake: former Discharge Plan Discharge Plan Patient Disposition: Home Provider Discharge Comment: You were admitted to the hospital with new diagnosis of heart failure. It is very important for your supervisor intermediates health to follow up with a primary care provider and tax investigator. Someone from [employer] may contact you about setting up the Lifevest which is a vest designed to help prevent sudden cardiac . Discharge orders & Medications Prescriptions: New aspirin 81 mg Tablet,Delayed Release (Dr/Ec) 81 mg PO DAILY 90 Days Qty: 90 0RF spironolactone 25 mg Tablet 12.5 mg PO DAILY 90 Days Qty: 45 0RF losartan 25 mg Tablet 12.5 mg PO DAILY 90 Days Qty: 45 0RF metoprolol succinate 25 mg Tablet Extended Release 24 Hr 12.5 mg PO BID 90 Days Qty: 90 0RF furosemide 20 mg tablet 20 mg PO BID 90 Days Qty: 180 0RF potassium chloride 20 mEq tablet extended release 20 meq PO BID 90 Days Qty: 180 0RF Other Ambulatory Orders: Referral to: (Schedule) Timeframe: 3 Days Location: Determined by Patient Ordered By: Rayo Trejo Diet/Activity/Treatments Diet: Diet as Tolerated and Low-sodium Activity: As tolerated, no restrictions Visit Report/Discharge Packet Instructions: Heart Failure, Heart-Healthy Diet, DI for Heart Failure, DI for Atrial Fibrillation, Knowing Your Ejection Fraction, Heart Failure: When to Call for Help, Heart Failure: Salt and Fluids Stand Alone Forms: Patient Portal/API, Stroke Signs & Symptoms Discharge Data Attending Provider: Hero Child Admit Date/Time: 07/22/23 17:47
[2023-07-24] MEDS: ASPIRIN EC 81 MG TABLET PO (10:00)
[2023-07-24] MEDS: POTASSIUM CHLORIDE 20 MEQ TAB 40 MEQ PO ×2 (10:00→13:14)
[2023-07-24] MEDS: LOSARTAN 25 MG TABLET 12.5 MG PO (10:00)
[2023-07-24] MEDS: FUROSEMIDE 40 MG/4 ML VIAL IV (10:00)
[2023-07-24] MEDS: METOPROLOL ER 25 MG TABLET 12.5 MG PO (10:01)
[2023-07-24] MEDS: SPIRONOLACTONE 25 MG TABLET 12.5 MG PO (10:01)
--- NOTE | 2023-07-24 11:34 | CM.DPNOTE ---
DC Note Patient eager to discharge, Dr Bustillos completing discharge orders today. Patient planing to return home w/family, mom Keena to transport. Placed call to Paulino Proctor [phone] w/ [employer], updated that patient discharging home today, provided patient's contact information and encouraged continued communication in the outpatient realm in case patient able to pay for LifeVest w/sliding scale payment vs secure Medicaid. Paulino appreciative for the update. Plan: Discharge home w/family to transport, patient strongly encouraged to secure insurance, primary care and cardiology follow up JW
--- NOTE | 2023-07-24 14:33 | PC.NURSE ---
Discharge: Mother of pt present at time of teaching. Pt and Mother had numerous questions about heart failure. Patient -> Do I really need this potassium and these medications? Mother also questioning the same thing. Explained importance of taking medication with new heart failure diagnosis and his condition could worsen with out them. Explained the importance of follow up and weighing self daily and keeping track of his weight, call the doctor if increases over a couple of days by 3 to 4 pounds. Discussed heart healthy diet. Pt has no insurance at this time, explained the good rx coupon to help decrease the cost of meds. Pt is in the process of getting medical insurance. Pt did get his oral k prior to d/c to home. Questions answered. Pt d/c to home via auto with his mother.
== END 2023-07-24 14:00 | disposition home or self-care (01) ==
LOC: ED 17:47 → AC 17:48
PROVIDERS: Student in an Organized Health Care Education/Training Program; Admitting Provider Internal Medicine; Emergency Provider Emergency Medicine; Referring Provider Emergency Medicine; Visit Provider Internal Medicine
DX: I50.21 Acute systolic (congestive) heart failure (principal); I42.0 Dilated cardiomyopathy; I48.91 Unspecified atrial fibrillation; E87.6 Hypokalemia; F10.20 Alcohol dependence, uncomplicated; Z87.891 Personal history of nicotine dependence; I48.92 Unspecified atrial flutter; I44.39 Other atrioventricular block
CPT/HCPCS: 36415; 71045; 71275; 80048; 80053; 82550; 83690; 83735; 83880; 84484; 85025; 85610; 85730; 93005; 93010; 93306; 96374; 96376; 99284; 99285; G0378; J1940

== ENCOUNTER 2023-07-24 22:17 | Emergency (ER) | payer OTHER, MEDICAID, SELFPAY ==
[2023-07-22 18:13] VITALS: BMI 19.2
[2023-07-24 22:24] VITALS: BP 120/89; PULSE 110; RESP 22; TEMP 36.5; O2SAT 98; BMI 19.2
--- NOTE | 2023-07-24 22:48 | ED.ARRPALP ---
HPI - Arrhythmia/Palpitations General Chief Complaint: Arrhythmia/Palpitations Stated Complaint: SOB, HR RAPID AND IRR Time Seen by Provider: 07/24/23 22:30 Source: patient Mode of arrival: Ambulatory History of Present Illness HPI narrative: Patient is a 48-year-old male. He was just discharged earlier today from this hospital after being admitted for several days and diagnosed with atrial fibrillation. Was also found to have systolic heart failure and cardiomyopathy which most likely is related to prior history of alcohol use. Was discharged home on Lasix. Was also placed on metoprolol. Also started on new medication such as spironolactone and losartan. He was able to pick these medications up but has not taken them this evening. His plan was to start them tomorrow morning. I did review his notes from the prior admission. It does appear that he converted from AFib to sinus rhythm during his stay however the patient states he was told this morning that he did have some episodes of atrial fibrillation that were short lived and resolved on their own prior to discharge. This evening he states that he started to feel like his heart was beating fast again. He did have some shortness of breath with this but it was not what it was like when he was here a couple days ago. He was not having any chest pain. No lightheadedness. He was uncertain as to whether not having occasional episodes like this is expected after his prior diagnosis. At the time of my evaluation he states his symptoms have greatly improved from what they were like at home. He is not on anticoagulation. Related Data Previous Rx's Medication Instructions Recorded apixaban 5 mg tablet (Eliquis) 5 mg PO BID #60 tabs 07/24/23 aspirin 81 mg tablet,delayed 81 mg PO DAILY 90 days #90 tabs 07/24/23 release furosemide 20 mg tablet 20 mg PO BID 90 days #180 tabs 07/24/23 losartan 25 mg tablet 12.5 mg (1/2 x 25 mg) PO DAILY 90 07/24/23 days #45 tabs metoprolol succinate 25 mg 12.5 mg (1/2 x 25 mg) PO BID 90 07/24/23 tablet,extended release 24 hr days #90 tabs potassium chloride 20 mEq 20 meq PO BID 90 days #180 tabs 07/24/23 tablet,extended release spironolactone 25 mg tablet 12.5 mg (1/2 x 25 mg) PO DAILY 90 07/24/23 days #45 tabs Allergies Allergy/AdvReac Type Severity Reaction Status Date / Time No Known Drug Allergies Allergy Verified 07/22/23 16:44 Review of Systems Constitutional Constitutional: Reports system reviewed and no additional complaints, except as documented Cardiovascular Cardiovascular: Reports system reviewed and no additional complaints, except as documented Respiratory Respiratory: Reports system reviewed and no additional complaints, except as documented Gastrointestinal Gastrointestinal: Reports system reviewed and no additional complaints, except as documented Genitourinary Genitourinary: Reports system reviewed and no additional complaints, except as documented Integumentary/Breasts Skin/Breast: Reports system reviewed and no additional complaints, except as documented Neurologic Neurologic: Reports system reviewed and no additional complaints, except as documented Hematologic/Lymphatic On Anticoagulants: No Patient History Social History household members: other Smoking Status: Former smoker alcohol intake: former Smoking Status: Former smoker Substance Use Type: does not use Exam Initial Vital Signs Initial Vital Signs: Vital Signs Temperature 97.7 F 07/24/23 22:24 Pulse Rate 110 H 07/24/23 22:24 Respiratory Rate 22 07/24/23 22:24 Blood Pressure 120/89 07/24/23 22:24 Pulse Oximetry 98 07/24/23 22:24 Oxygen Delivery Method Room Air 07/24/23 22:24 HENMT Head: normal to inspection and normocephalic Resp Effort & Inspection: normal respiratory effort Auscultation: clear to auscultation bilaterally Cardio Rate: tachycardic Neuro General: patient alert, patient awake, patient oriented x3 and moves all extremities Extrem General: No edema Course Orders Ordered: ED Orders 07/24/23 22:30 EKG-12 Lead Stat Discontinued Medications Apixaban (Apixaban 5 Mg Tablet) 5 mg PO NOW ONE Stop: 07/24/23 23:09 Last Admin: 07/24/23 23:18 Dose: 5 mg Documented By: GRIFFIN Metoprolol Succinate (Metoprolol Er 25 Mg Tablet) 25 mg PO NOW ONE Stop: 07/24/23 22:57 Last Admin: 07/24/23 23:06 Dose: 25 mg Documented By: GRIFFIN Vital Signs Vital signs: Vital Signs - 8 hr 07/24/23 22:24 07/24/23 23:00 07/24/23 23:06 Temperature 97.7 F Pulse Rate 110 H 93 H 89 Respiratory Rate 22 18 Blood Pressure 120/89 133/77 133/77 Pulse Oximetry 98 96 Oxygen Delivery Method Room Air Room Air 07/24/23 23:30 Temperature Pulse Rate 87 Respiratory Rate 18 Blood Pressure 112/74 Pulse Oximetry 99 Oxygen Delivery Method Room Air MDM - Arrhythmia/Palpitations Medical Records Attestation: I reviewed the patient's medical records. ECG Data Attestation: I personally reviewed and interpreted this ECG as follows: Interpretation: Atrial flutter Ventricular rate 92 QRS [address] T wave changes MDM Narrative Medical decision making narrative: Patient is not in any respiratory distress. He is not clinically in heart failure. Not hypoxic. Is not tachypneic. Is in atrial flutter on his EKG. Has a heart rate anywhere from the 80s to 115. He actually states that his breathing issues that he was having earlier today have actually improved since arrival here to the ER. No fevers. They had a discussion with him regarding his symptoms. He is relatively rate controlled. He was given a dose of metoprolol here in the ER. I also feel that starting him on anticoagulation would be warranted as he is now showing that he is having paroxysmal AFib/a flutter. He was not cardioverted during his last hospital stay. Looks like he converted on his own but maybe was having some episodes of paroxysmal AFib prior to his discharge. Patient is feeling well. I did advise that he start taking his medications as directed. Will start him on anticoagulation. His 1st doses here in the ER. He was told about the co-pay card that he could use to try to help with the cost of this medication. Patient was given specific return precautions. He expressed understanding and agreement with plan. Discharge Plan Departure Patient Disposition: Home Clinical Impression: Atrial flutter Instructions: DI for Atrial Flutter Activity Restrictions/Additional Instructions: I do recommend that you take all of your medications as directed. I started you on a new medicine this evening. This medicine is called Eliquis/apixaban. This medicine is a blood thinner. If you start taking this medicine then stop taking the daily aspirin. I do recommend that you look up? Eliquis co-pay card?. This is a website from the manufacture of the medicine. You can fill out the information and they will give you a? card? that you can take to the pharmacy which will significantly reduce the cost of this medication. It is important that you follow-up with cardiology. Return to the emergency department for new or worsening symptoms. Prescriptions: New Eliquis 5 mg tablet 5 mg PO BID Qty: 60 0RF No Action aspirin 81 mg Tablet,Delayed Release (Dr/Ec) 81 mg PO DAILY 90 Days Qty: 90 0RF spironolactone 25 mg Tablet 12.5 mg PO DAILY 90 Days Qty: 45 0RF losartan 25 mg Tablet 12.5 mg PO DAILY 90 Days Qty: 45 0RF metoprolol succinate 25 mg Tablet Extended Release 24 Hr 12.5 mg PO BID 90 Days Qty: 90 0RF furosemide 20 mg tablet 20 mg PO BID 90 Days Qty: 180 0RF potassium chloride 20 mEq tablet extended release 20 meq PO BID 90 Days Qty: 180 0RF Stand Alone Forms: Patient Portal/API
[2023-07-24 23:00] VITALS: BP 133/77; PULSE 93; RESP 18; O2SAT 96
[2023-07-24 23:06] VITALS: BP 133/77; PULSE 89
[2023-07-24] MEDS: METOPROLOL ER 25 MG TABLET PO (23:06)
[2023-07-24] MEDS: APIXABAN 5 MG TABLET PO (23:18)
[2023-07-24 23:30] VITALS: BP 112/74; PULSE 87; RESP 18; O2SAT 99
== END 2023-07-24 23:54 | disposition home or self-care (01) ==
PROVIDERS: Emergency Provider Emergency Medicine
DX: I48.92 Unspecified atrial flutter (principal); I44.39 Other atrioventricular block
CPT/HCPCS: 36415; 93005; 93010; 99284